=== PATIENT | female | born 1985 | race Caucasian/White ===

== ENCOUNTER 2018-04-05 17:02 | Emergency (ER) | payer OTHER, MEDICAID ==
[2018-04-05] MEDS: morphine 4 MG/ML VIAL IM (21:27)
[2018-04-05] MEDS: KETOROLAC 30 MG INJ IM (21:27)
[2018-04-05 21:32] LABS: ADD UMIC NO; UR ASCORBIC ACID NEGATIVE (NEGATIVE); UR BILIRUBIN (Dip) NEGATIVE (NEGATIVE); UR BLOOD (Dip) NEGATIVE (NEGATIVE); UR CLARITY CLEAR (CLEAR); UR COLOR YELLOW (YELLOW); UR GLUCOSE (Dip) NEGATIVE (NEGATIVE); UR KETONES (Dip) NEGATIVE (NEGATIVE); UR LEUKOCYTE ESTERASE (Dip) NEGATIVE Leu/ul (NEGATIVE); UR NITRITE (Dip) NEGATIVE (NEGATIVE); UR SPECIFIC GRAVITY (Dip) 1.015 (1.003-1.030); UR TOTAL PROTEIN (Dip) NEGATIVE (NEGATIVE); UR UROBILINOGEN (Dip) NEGATIVE (NEGATIVE)
== END 2018-04-05 22:33 | disposition home or self-care (01) ==
LOC: FTE 17:02
DX: M54.40 Lumbago with sciatica, unspecified side (principal); M51.86 Other intervertebral disc disorders, lumbar region
CPT/HCPCS: 72100; 81003; 81025; 96372; 99284-25

== ENCOUNTER 2018-07-01 16:49 | Emergency (ER) | payer OTHER, MEDICAID ==
[2018-07-01] MEDS: IBUPROFEN 600 MG TAB PO (17:33)
== END 2018-07-01 19:52 | disposition home or self-care (01) ==
LOC: FTE 16:49
DX: M25.511 Pain in right shoulder (principal)
CPT/HCPCS: 73000; 99283-25